=== PATIENT | female | born 1990 | race Caucasian/White ===

== ENCOUNTER 2016-04-30 10:34 | Emergency (ER) | payer MEDICAID, OTHER ==
[2016-04-30] MEDS ORDERED: NS 1,000 ML IV ONE ×2 (10:55→12:20)
[2016-04-30] MEDS ORDERED: ONDANSETRON 4 MG/2 ML VIAL IVP ONE (10:55)
[2016-04-30 11:13] VITALS: BP 139/97; PULSE 61; RESP 18; TEMP 97.3; O2SAT 97
[2016-04-30 11:19] LABS: ADD DIFF? NO; HEMOGLOBIN 15.6 g/dL (12.6-16.3); MEAN CELL HEMOGLOBIN 32.2 pg (27.9-34.1); MEAN CELL HEMOGLOBIN CONCENTR. 36.3 g/dL (32.4-36.7); MEAN CELL VOLUME 88.7 fL (81.5-99.8); MEAN PLATELET VOLUME 9.6 fL (8.7-11.7); PLATELET COUNT 312 10^3/uL (150-400); RED BLOOD CELL COUNT 4.85 10^6/uL (4.18-5.33); RED CELL DISTRIBUTION WIDTH 12.3 % (11.5-15.2)
[2016-04-30 11:20] LABS: ADD MORPH? NO; ADD SCAN? NO; ATYPICAL LYMPHOCYTE FLAG 70 (0-99); FRAGMENT RBC FLAG 0 (0-99); LEFT SHIFT FLG 0 (0-99); LIPEMIA HEMOLYSIS FLAG 90 (0-99); PLATELET CLUMPS FLAG 10 (0-99)
[2016-04-30] MEDS ORDERED: HYOSCYAMINE SULFATE 0.125 MG TAB PO ONE (11:25)
[2016-04-30 11:35] LABS: ALANINE AMINOTRANSFERASE 28 IU/L (9-52); ALBUMIN 4.3 g/dL (3.5-5.0); ALKALINE PHOSPHATASE 45 IU/L (38-126); ANION GAP 13 mEq/L (8-16); ASPARTATE AMINOTRANSFERASE 18 IU/L (14-46); BILIRUBIN,TOTAL 1.3 mg/dL (0.1-1.4); CALCIUM 9.3 mg/dL (8.5-10.4); CARBON DIOXIDE 23 mEq/l (22-31); CHLORIDE 101 mEq/L (97-110); CREATININE 0.8 mg/dL (0.6-1.0); GLOMERULAR FILTRATION RATE > 60; GLUCOSE 90 mg/dL (70-100); SODIUM 137 mEq/L (134-144); TOTAL PROTEIN 7.4 g/dL (6.3-8.2)
[2016-04-30 12:24] LABS: COLOR YELLOW; LEUKOCYTE ESTERASE,URINE NEGATIVE (NEGATIVE); NITRITE,URINE NEGATIVE (NEGATIVE)
--- NOTE | 2016-04-30 12:52 | UCPHY ---
H & P Patient Type: Established Chief Complaint Nursing Narrative: n/v/d since , reports soft stools, felt feverish, undocumented temperatures. unable to keep po fluids down. LLQ abd tenderness in triage. feels abd bloating. Time Seen by Provider: 04/30/16 10:55 HPI/ROS: This patient complains of vomiting for 6 days intermittently. She also had diarrhea. For the 1st 3 days her symptoms were only a occasional but over the past 3 days she has had increased frequency of vomiting and diarrhea with half dozen or so episodes a day. She is intermittently tolerated some Pedialyte but no solids over the past couple days. She has associated crampy abdominal pain that waxes and wanes and is moderate at its worse. She also reports low-grade subjective fevers. The 1st 2-3 days she had associated mild myalgias including some back pain was unclear if that was kidney your lumbar. Her mother visited today in brought her in for further evaluation due to her ongoing symptoms. ROS: No high fevers or chills. No other constitutional symptoms HEENT: Mild coryza 1st few days that has since resolved. No other HEENT complaints. Pulmonary: No cough. Cardiovascular: Mild lightheadedness today when she standing. No other complaints. GI: No bloody stools or bloody emesis. No coffee-ground emesis. : No dysuria. She reports abnormal menses that she attributes to her IUD. She did take a negative test at home today. 10 point ROS is otherwise negative. Source: Patient Exam Limitations: No limitations - Personal History LMP (Females 10-55): IUD In Place - Medical/Surgical History PMH: 1 tab Otherwise healthy Hx Asthma: No Hx Chronic Respiratory Disease: No Hx Diabetes: No Hx Cardiac Disease: No Hx Renal Disease: No Hx Cirrhosis: No Hx Alcoholism: No Hx HIV/AIDS: No Hx Splenectomy or Spleen Trauma: No Other PMH: denies - Family History Significant Family History: No pertinent family hx - Social History Smoking Status: Never smoked Alcohol Use: Occasionally Drug Use: None Additional Social History: No recent foreign travel. No suspect food. She did have pad tired the day before her symptoms but no also [employer] with her got sick. - Physical Exam Exam: General Appearance: Alert, no distress. Eyes: Pupils equal and round no pallor or injection. ENT, Mouth: Mucous membranes dry Respiratory: There are no retractions, lungs are clear to auscultation. Cardiovascular: Regular rate and rhythm. Gastrointestinal: Hyperactive bowel sounds, diffuse lower belly tenderness that is more prominent the left lower quadrant than the right. No organomegaly. No rebound tenderness or guarding Back: No CVA tenderness Neurological: Alert. Skin: Warm and dry, no rashes. Musculoskeletal: Neck is supple nontender. Extremities are symmetrical, full range of motion. Psychiatric: Normal mood and affect DIFFERENTIAL DIAGNOSIS: After history and physical exam differential diagnosis was considered for viral gastroenteritis, dehydration, metabolic/electrolyte abnormalities, UTI, bacterial dysentery Constitutional: Initial Vital Signs Temperature (C) 36.3 C 04/30/16 10:55 Heart Rate 61 04/30/16 10:55 Respiratory Rate 18 04/30/16 10:55 Blood Pressure 139/97 H 04/30/16 10:55 O2 Sat (%) 97 04/30/16 10:55 O2 Delivery Mode Room Air Allergies/Adverse Reactions: clarithromycin [From Biaxin] Allergy (Verified 04/30/16 11:10) Home Medications: Medication Instructions Recorded HYOSCYAMINE SULFATE [LEVSIN-SL] 0.125 - 0.25 mg SL Q6 PRN #15 04/30/16 tab.subl Ondansetron Odt [Zofran Odt] 4 - 8 mg PO Q4PRN PRN #4 tab 04/30/16 Medical Decision Making ED Course/Re-evaluation: IV normal saline bolus, Zofran with resolution of nausea vomiting. Levsin sublingual with improvement in cramping. She tolerated p.o. intake thereafter without vomiting and felt improved. Review of her labs reveals normal CBC, chemistries, urinalysis and negative . Findings are consistent with viral gastroenteritis and dehydration. I counseled regarding this. - Data Points Laboratory Results: Laboratory Results 04/30/16 11:15 04/30/16 11:15 Medications Given: Discontinued Medications Hyoscyamine Sulfate (Levsin, Hyomax-Sl) 0.125 mg PO EDNOW ONE Stop: 04/30/16 11:26 Last Admin: 04/30/16 11:31 Dose: 0.125 mg Sodium Chloride (Ns) 1,000 mls @ 0 mls/hr IV ONCE ONE PRN Reason: Wide Open Stop: 04/30/16 10:56 Last Admin: 04/30/16 11:20 Dose: 1,000 mls Sodium Chloride (Ns) 1,000 mls @ 0 mls/hr IV ONCE ONE PRN Reason: Wide Open Stop: 04/30/16 12:21 Last Admin: 04/30/16 12:20 Dose: 1,000 mls Ondansetron HCl (Zofran) 4 mg IVP EDNOW ONE Stop: 04/30/16 10:56 Last Admin: 04/30/16 11:23 Dose: 4 mg Departure - Departure Disposition: Home, Routine, Self-Care Clinical Impression: Gastroenteritis, Dehydration, Abdominal cramping Condition: Good Instructions: Gastroenteritis (ED) Additional Instructions: Diagnosis: Viral gastroenteritis 2. Abdominal cramping 2. Dehydration Plan: Drink plenty fluids Zofran if needed for nausea vomiting Levsin if needed for abdominal cramping Light diet to feel improved Return for any significant worsening despite the treatment plan. Referrals: NONE *PRIMARY CARE P,. [Primary Care Provider] - As per Instructions Stand Alone Forms: Work Excuse Prescriptions: HYOSCYAMINE SULFATE [LEVSIN-SL] 0.125 - 0.25 mg SL Q6 PRN #15 tab.subl PRN Reason: abdominal cramping Ondansetron Odt [Zofran Odt] 4 - 8 mg PO Q4PRN PRN #4 tab PRN Reason: Vomiting - PQRS PQRS Measurement: NA
== END 2016-04-30 13:08 | disposition home or self-care (01) ==
LOC: CED 10:34
DX: K52.9 Noninfective gastroenteritis and colitis, unspecified (principal); E86.0 Dehydration; R10.32 Left lower quadrant pain
CPT/HCPCS: 80053-PO; 81003-PO; 83690-PO; 84703-PO; 85025-PO; 96361-PO; 96374-PO; 99215-PO; G0463-PO; J2405